=== PATIENT | female | born 2000 ===

== ENCOUNTER 2024-12-11 13:46 | Outpatient (CLI) | payer OTHER | END 2024-12-11 13:47 | disposition home or self-care (01) | LOC: PRENATAL 13:46 | PROVIDERS: ATTEND Obstetrics & Gynecology Maternal & Fetal Medicine | DX: O44.00 Complete placenta previa NOS or without hemorrhage, unspecified trimester (principal); O36.5990 Maternal care for other known or suspected poor fetal growth, unspecified trimester, not applicable or unspecified; O36.1999 Maternal care for other isoimmunization, unspecified trimester, other fetus; Z3A.35 35 weeks gestation of pregnancy ==